=== PATIENT | female | born 1980 | race African-American/Black ===

== ENCOUNTER 2016-10-06 17:38 | Emergency (ER) | payer OTHER ==
[~2016-10-06] VITALS: Ht 165.1 cm; Wt 90.7 kg
[~2016-10-06 17:38] MED LIST: CLIN300C86 PO; SULF1TAB24 PO; TRAM-29 PO
[2016-10-06] MEDS ORDERED: IV NORMAL SALINE 1000ML BAG 1,000 ML IV SCH (21:08)
[2016-10-06 21:21] LABS: BASO % 1 % (0-3); EOS % 2 % (0-3); HEMATOCRIT 35.3 % (36.0-47.0); HEMOGLOBIN 11.4 g/dL (12.0-15.5); LYMPH % 38 % (24-48); MEAN CORPUSCULAR HEMOGLOBIN 30 pg (25-35); MEAN CORPUSCULAR HGB CONC 32 g/dL (31-37); MEAN CORPUSCULAR VOLUME 93 fL (79-100); MONO % 7 % (0-9); NEUT % 53 % (31-73); PLATELET COUNT 204 x10^3/uL (140-400); RED BLOOD COUNT 3.81 x10^6/uL (3.50-5.40); RED CELL DISTRIBUTION WIDTH 15.1 % (11.5-14.5); WHITE BLOOD COUNT 7.8 x10^3/uL (4.0-11.0)
[2016-10-06 21:22] LABS: BILIRUBIN,URINE NEGATIVE (NEG); GLUCOSE,URINE NEGATIVE (NEG); NITRITE,URINE NEGATIVE (NEG); PROTEIN,URINE NEGATIVE (NEG-TRACE); UROBILINOGEN,URINE 0.2 mg/dL (0.2 mg/dL)
[2016-10-06 21:28] LABS: BACTERIA,URINE 0 /HPF (0-FEW); RBC,URINE OCC /HPF (0-2); SQUAMOUS EPITHELIAL CELL,UR OCC /LPF; WBC,URINE OCC /HPF (0-4)
--- NOTE | 2016-10-06 21:29 | PHYS DOC ---
Past Medical History Past Medical History: GERD, Hypothyroid, Migraines Additional Past Medical Histor: Abscesses Past Surgical History: Cholecystectomy, Tubal ligation Alcohol Use: None Drug Use: None Adult General Chief Complaint Chief Complaint: VAGINAL BLEEDING HPI HPI Patient is a 36 year old female who presents with complaint of lower abdominal pain and vaginal bleeding. Patient states her vaginal bleeding has been present for the past 10 days. Patient states that her bleeding had been constant up until today. Patient states that her bleeding has slowed down currently from where it had been before. Patient states that she is having sharp pelvic pains as well. Patient rates her pain as 8 out of 10. Patient states that the pain is sharp. Patient denies pain with urination and denies any vaginal discharge. Patient states that her menstrual cycle is normally 3-4 days and she states that her cycles are regular. Review of Systems Review of Systems Constitutional: Denies fever or chills [] Eyes: Denies change in visual acuity, redness, or eye pain [] HENT: Denies nasal congestion or sore throat [] Respiratory: Denies cough or shortness of breath [] Cardiovascular: No additional information not addressed in HPI [] GI: Denies abdominal pain, nausea, vomiting, bloody stools or diarrhea [] : Vaginal bleeding, pelvic pain [] Musculoskeletal: Denies back pain or joint pain [] Integument: Denies rash or skin lesions [] Neurologic: Denies headache, focal weakness or sensory changes [] Current Medications Current Medications Current Medications Medications (Trade) Dose Ordered Sig/Tim Start Time Stop Time Status Last Admin Dose Admin Sodium Chloride (Iv Sodium Chloride 0.9% 1000ml Bag) 1,000 ml @ 1,000 mls/hr Q1H 10/06/16 21:08 10/06/16 22:07 DC 10/06/16 22:03 1,000 MLS/HR Allergies Allergies Allergies Coded Allergies Type Severity Reaction Last Updated Verified doxycycline Allergy Intermediate Itching 05/06/16 Yes Physical Exam Physical Exam Constitutional: Well developed, well nourished, no acute distress, non-toxic appearance. [] HENT: Normocephalic, atraumatic, bilateral external ears normal, oropharynx moist, no oral exudates, nose normal. [] Eyes: PERRLA, EOMI, conjunctiva normal, no discharge. [] Neck: Normal range of motion, no tenderness, supple, no stridor. [] Cardiovascular:Heart rate regular rhythm, no murmur [] Lungs & Thorax: Bilateral breath sounds clear to auscultation [] Abdomen: Bowel sounds normal, soft, no tenderness, no masses, no pulsatile masses. Pelvic: Normal external exam, mild amount of clotted blood present in vaginal canal, cervical os closed with minimal oozing of blood from os, no cervical motion tenderness, no midline or bilateral adnexal tenderness to palpation [] Skin: Warm, dry, no erythema, no rash. [] Back: No tenderness, no CVA tenderness. [] Extremities: No tenderness, no cyanosis, no clubbing, ROM intact, no edema. [] Neurologic: Alert and oriented X 3, normal motor function, normal sensory function, no focal deficits noted. [] Current Patient Data Vital Signs Vital Signs Date Time Temp Pulse Resp B/P Pulse Ox O2 Delivery O2 Flow Rate FiO2 10/06/16 20:29 98.1 110 18 123/88 98 Room Air 98.1 Lab Values Laboratory Tests Test 10/06/16 20:40 10/06/16 20:46 10/06/16 20:50 Urine Color Yellow Urine Clarity Clear Urine pH 7.0 Urine Specific [place] 1.025 Urine Protein Negativemg/dL (NEG-TRACE) Urine Glucose (UA) Negativemg/dL (NEG) Urine Ketones (Stick) Negativemg/dL (NEG) Urine Blood Small (NEG) Urine Nitrite Negative (NEG) Urine Bilirubin Negative (NEG) Urine Urobilinogen Dipstick 0.2mg/dL (0.2 mg/dL) Urine Leukocyte Esterase Negative (NEG) Urine RBC Occ/HPF (0-2) Urine WBC Occ/HPF (0-4) Urine Squamous Epithelial Cells Occ/LPF Urine Bacteria 0/HPF (0-FEW) Urine Mucus Mod/LPF POC Urine HCG, Qualitative Hcg negative (Negative) White Blood Count 7.8x10^3/uL (4.0-11.0) Red Blood Count 3.81x10^6/uL (3.50-5.40) Hemoglobin 11.4g/dL (12.0-15.5) L Hematocrit 35.3% (36.0-47.0) L Mean Corpuscular Volume 93fL (79-100) Mean Corpuscular Hemoglobin 30pg (25-35) Mean Corpuscular Hemoglobin Concent 32g/dL (31-37) Red Cell Distribution Width 15.1% (11.5-14.5) H Platelet Count 204x10^3/uL (140-400) Neutrophils (%) (Auto) 53% (31-73) Lymphocytes (%) (Auto) 38% (24-48) Monocytes (%) (Auto) 7% (0-9) Eosinophils (%) (Auto) 2% (0-3) Basophils (%) (Auto) 1% (0-3) Neutrophils # (Auto) 4.1x10^3uL (1.8-7.7) Lymphocytes # (Auto) 3.0x10^3/uL (1.0-4.8) Monocytes # (Auto) 0.5x10^3/uL (0.0-1.1) Eosinophils # (Auto) 0.2x10^3/uL (0.0-0.7) Basophils # (Auto) 0.0x10^3/uL (0.0-0.2) Prothrombin Time 12.9SEC (11.7-14.0) Prothrombin Time INR 1.0 (0.8-1.1) PTT 26SEC (24-38) Sodium Level 141mmol/L (136-145) Potassium Level 3.7mmol/L (3.5-5.1) Chloride Level 104mmol/L (98-107) Carbon Dioxide Level 26mmol/L (21-32) Anion Gap 11 (6-14) Blood Urea Nitrogen 14mg/dL (7-20) Creatinine 0.9mg/dL (0.6-1.0) Estimated GFR (Cockcroft-Gault) 84.8 Glucose Level 138mg/dL (70-99) H Calcium Level 9.0mg/dL (8.5-10.1) Magnesium Level 1.8mg/dL (1.8-2.4) Laboratory Tests 10/06/16 20:50 Laboratory Tests 10/06/16 20:50 Microbiology 10/06/16 Wet Prep - Final, Complete EKG EKG Not performed [] Radiology/Procedures Radiology/Procedures Not performed [] Course & Med Decision Making Course & Med Decision Making Pertinent Labs and Imaging studies reviewed. (See chart for details) Patient was found to have clue cells on her wet prep. The patient will be started on Flagyl treatment as outpatient. The patient did mention during pelvic exam that she was told approximate 7 years ago that she had uterine fibroids at that time. This may be contributing to the patient's abnormal bleeding. The patient's workup otherwise is unremarkable. The patient is appropriate for continued outpatient workup and treatment. The patient was referred to Dr. Fuller of [facility] for follow-up in 5-7 days. The patient's nonfasting blood sugar was found to be 138. I recommended that the patient have this rechecked with at least 6-8 hours of fasting before having her blood sugar checked. I recommended return to the emergency department for any worsening symptoms. Patient voiced understanding and in agreement with treatment plan. Dragon Disclaimer Dragon Disclaimer This electronic medical record was generated, in whole or in part, using a voice recognition dictation system. Departure Departure Impression: Primary Impression: Menorrhagia Additional Impressions: Bacterial vaginosis Hyperglycemia Disposition: HOME, SELF-CARE Condition: IMPROVED Referrals: NO PCP (PCP) MELANI NUNEZ MD Patient Instructions: Bacterial Vaginosis, Hyperglycemia, Menorrhagia Additional Instructions: Be sure to complete the entire antibiotic prescription for treatment of bacterial vaginosis. Follow-up with [facility] in 5-7 days. Be sure to have your blood sugar rechecked with at least 6-8 hours of fasting before it is checked. Return to the emergency department for any worsening symptoms. Scripts Metronidazole (Flagyl)500 Mg Tablet1 Tab PO BID #14 TAB Prov:ANOOP ACEVEDO MD 10/06/16 Problem Qualifiers Primary Impression: Menorrhagia Menorrahagia type: with regular cycle Qualified Code: N92.0 - Excessive and frequent menstruation with regular cycle ANOOP ACEVEDO MD Oct 06, 2016 21:29
[2016-10-06 21:31] LABS: PROTHROMBIN TIME PATIENT 12.9 SEC (11.7-14.0)
[2016-10-06 21:32] LABS: CREATININE 0.9 mg/dL (0.6-1.0); GFR 84.8; MAGNESIUM 1.8 mg/dL (1.8-2.4); POTASSIUM 3.7 mmol/L (3.5-5.1)
[2016-10-06] MEDS ORDERED: METR500T PO (22:12)
[2016-10-06 22:51] VITALS: BP 150/82
== END 2016-10-06 22:55 | disposition home or self-care (01) ==
LOC: ER 17:38
DX: N92.0 Excessive and frequent menstruation with regular cycle (principal); N76.0 Acute vaginitis; R73.9 Hyperglycemia, unspecified; K21.9 Gastro-esophageal reflux disease without esophagitis; E03.9 Hypothyroidism, unspecified; G43.909 Migraine, unspecified, not intractable, without status migrainosus; Z90.49 Acquired absence of other specified parts of digestive tract; Z98.51 Tubal ligation status; Z88.1 Allergy status to other antibiotic agents
CPT/HCPCS: 36415; 80048; 81001; 81025; 83735; 85027; 85610; 85730; 87491; 87591; 96360; 99284; J7030; Q0111

== ENCOUNTER 2016-11-23 20:09 | Emergency (ER) | payer OTHER ==
[~2016-11-23 20:09] MED LIST changes: +METR500T PO
[2016-11-23 20:11] VITALS: BP 118/89
[2016-11-23] MEDS ORDERED: SULF1TAB24 PO (20:38)
--- NOTE | 2016-11-23 20:38 | PHYS DOC ---
Past Medical History Past Medical History: No Pertinent History Additional Past Medical Histor: Abscesses Past Surgical History: Cholecystectomy Alcohol Use: None Drug Use: None Adult General Chief Complaint Chief Complaint: SKIN PROBLEM HPI HPI Patient is a 36 year old female presents emergency department stating that she has multiple abscesses. Patient states that she's had these for the last 2 days. She states that she has multiple abscesses underneath her left axillary her hard and tender to touch. Abscess in the left inguinal area that appears to have drainage at this time. In one abscess on the right buttocks that is very soft and tender to touch. Patient states that she has had abscesses in the past. She states that she has had lanced open as well. Patient states that she has been having some nauseous feeling although denies fever, chills. Review of Systems Review of Systems Constitutional: Denies fever or chills [] Eyes: Denies change in visual acuity, redness, or eye pain [] HENT: Denies nasal congestion or sore throat [] Respiratory: Denies cough or shortness of breath [] Cardiovascular: No additional information not addressed in HPI [] GI: Denies abdominal pain, nausea, vomiting, bloody stools or diarrhea [] : Denies dysuria or hematuria [] Musculoskeletal: Denies back pain or joint pain [] Integument: Denies rash or skin lesions. C/o multiple abscesses Neurologic: Denies headache, focal weakness or sensory changes [] Current Medications Current Medications Current Medications Medications (Trade) Dose Ordered Sig/Tim Start Time Stop Time Status Last Admin Dose Admin Acetaminophen/ Hydrocodone Bitart (Lortab 5/325) 1 tab 1X ONCE 11/23/16 21:00 11/23/16 21:01 DC 11/23/16 20:48 1 TAB Lidocaine/Sodium Bicarbonate (Buffered Lidocaine 1%) 20 ml 1X ONCE 11/23/16 21:00 11/23/16 21:01 DC 11/23/16 20:48 20 ML Allergies Allergies Allergies Coded Allergies Type Severity Reaction Last Updated Verified doxycycline Allergy Intermediate Itching 05/06/16 Yes Physical Exam Physical Exam Constitutional: Well developed, well nourished, no acute distress, non-toxic appearance. [] HENT: Normocephalic, atraumatic, bilateral external ears normal, oropharynx moist, no oral exudates, nose normal. [] Eyes: PERRLA, EOMI, conjunctiva normal, no discharge. [] Neck: Normal range of motion, no tenderness, supple, no stridor. [] Cardiovascular:Heart rate regular rhythm, no murmur [] Lungs & Thorax: Bilateral breath sounds clear to auscultation [] Skin: Warm, dry, no erythema, no rash. Multiple abscesses noted under the left axillary that appear to be very hard with no fluctuation noted. Tenderness was noted. Patient with abscess noted in the left inguinal area that appears to be very tender with fluctuation noted with drainage noted. Patient with abscess on the right buttocks that appears to be very tender. Soft with fluctuant noted no drainage noted. Back: No tenderness Extremities: No tenderness, no cyanosis, no clubbing, ROM intact, no edema. [] Neurologic: Alert and oriented X 3, normal motor function, normal sensory function, no focal deficits noted. [] Psychologic: Affect normal, judgement normal, mood normal. [] Current Patient Data Vital Signs Vital Signs Date Time Temp Pulse Resp B/P Pulse Ox O2 Delivery O2 Flow Rate FiO2 11/23/16 20:48 14 95 Room Air 11/23/16 20:11 97.9 110 97.9 EKG EKG [] Radiology/Procedures Radiology/Procedures [] Course & Med Decision Making Course & Med Decision Making Pertinent Labs and Imaging studies reviewed. (See chart for details) Patient was provided with hydrocodone for pain and discomfort. Went in to speak with patient in regards to the I&D in which she has told staff she does not want done. Upon entering patient's room she has eloped from the department. Patient will be considered against leaving AGAINST MEDICAL ADVICE. It was not provided with any type of antibiotics to help with the infections. [] Dragon Disclaimer Dragon Disclaimer This electronic medical record was generated, in whole or in part, using a voice recognition dictation system. Departure Departure Impression: Primary Impression: Left against medical advice Additional Impression: Abscess Disposition: 01 HOME, SELF-CARE Condition: STABLE Referrals: NO PCP (PCP) JAYDON ISRAEL MD Patient Instructions: Abscess, [id number], Incision and Drainage, Care After Problem Qualifiers GEORGIANA OROURKE APRN Nov 23, 2016 20:38
[2016-11-23] MEDS ORDERED: LIDOCAINE 1% / SOD BICARB 8.4% 20 ML VIAL. IJ ONE (21:00)
[2016-11-23] MEDS ORDERED: HYDROCODONE/APAP 5/325MG TABLET. PO ONE (21:00)
== END 2016-11-23 21:10 | disposition home or self-care (01) ==
LOC: ER 20:09
DX: L02.412 Cutaneous abscess of left axilla (principal); L02.31 Cutaneous abscess of buttock; L02.214 Cutaneous abscess of groin; R11.0 Nausea; Z88.1 Allergy status to other antibiotic agents
CPT/HCPCS: 99283

== ENCOUNTER 2017-01-22 21:20 | Emergency (ER) | payer OTHER ==
[~2017-01-22] VITALS: Ht 165.1 cm; Wt 94.8 kg
[~2017-01-22 21:20] MED LIST changes: +CLIN300C8 PO; -CLIN300C86 PO; -TRAM-29 PO; +TRAM-48 PO
[2017-01-22 21:26] VITALS: BP 118/76
[2017-01-22] MEDS ORDERED: IBUP200T77 PO (22:01)
--- NOTE | 2017-01-22 22:02 | PHYS DOC ---
Past Medical History Past Medical History: Depression, Migraines, Other Additional Past Medical Histor: Abscesses Past Surgical History: Cholecystectomy, Tubal ligation Alcohol Use: None Drug Use: None Adult General Chief Complaint Chief Complaint: FLU SYMPTOM HPI HPI 28-year-old female presenting with flulike symptoms. She reports having a cough runny nose muscle aches and headache. Her symptoms have been present for 3 days. She describes her headache is mild to moderate intermittent nonradiating worse with light. She denies chest pain abdominal pain nausea or vomiting. Review of systems is positive for cough rhinorrhea headache and muscle aches. All other review of systems is negative unless otherwise noted in history of present illness. Pertinent physical exam. The patient has clear lungs bilaterally. Soft nontender abdomen. No evidence of meningismus present. Negative Brudzinski sign. Negative Kernig sign. Nonfocal neuro exam. ED course: 36-year-old female presenting with flulike symptoms. Vital signs afebrile with mild tachycardia present. Saturating well on room air. I gave her ibuprofen for her headache and myalgias. She was in discharged home to follow up with her PCP in 2-3 days. She was to return if their symptoms worsened or if they were concerned for any reason. [id number] discharge instructions and return precautions were given. Patient's questions were answered to their satisfaction. Patient is comfortable plan. Review of Systems Review of Systems SEE ABOVE. Allergies Allergies Allergies Coded Allergies Type Severity Reaction Last Updated Verified doxycycline Allergy Intermediate Itching 05/06/16 Yes Physical Exam Physical Exam Constitutional: Well developed, well nourished, no acute distress, non-toxic appearance. HENT: Normocephalic, atraumatic, bilateral external ears normal, oropharynx moist, no oral exudates, nose normal. [] Eyes: PERRLA, EOMI, conjunctiva normal, no discharge. [] Neck: Normal range of motion, no tenderness, supple, no stridor. Cardiovascular: Heart rate regular rhythm, no murmur [] Lungs & Thorax: Bilateral breath sounds clear to auscultation [] Abdomen: Bowel sounds normal, soft, no tenderness, no masses, no pulsatile masses. [] Skin: Warm, dry, no erythema, no rash. Back: No tenderness, no CVA tenderness. [] Extremities: No tenderness, no cyanosis, no clubbing, ROM intact, no edema. [] Neurologic: Alert and oriented X 3, normal motor function, normal sensory function, no focal deficits noted. Psychologic: Affect normal, judgement normal, mood normal. Current Patient Data Vital Signs Vital Signs Date Time Temp Pulse Resp B/P (MAP) Pulse Ox O2 Delivery O2 Flow Rate FiO2 01/22/17 21:26 98.1 97 20 98 Room Air 98.1 EKG EKG [] Radiology/Procedures Radiology/Procedures [] Course & Med Decision Making Course & Med Decision Making Pertinent Labs and Imaging studies reviewed. (See chart for details) [] Dragon Disclaimer Dragon Disclaimer This electronic medical record was generated, in whole or in part, using a voice recognition dictation system. Departure Departure Impression: Primary Impression: Flu-like symptoms Additional Impression: Viral URI Disposition: HOME, SELF-CARE Condition: STABLE Referrals: NO PCP (PCP) NANCY GARNICA MD Patient Instructions: Cough, Adult, Muscle Cramps, [id number] Additional Instructions: Thank you for allowing us to participate in your care today. Followup with your primary care physician in 3 days if your symptoms do not improve. If you do not have a primary care provider you can ask for a list of our primary care providers. Return to the emergency department you have any new or concerning findings. This should be evaluated by the primary care physician and any necessary consulting services for continued management within a few days after discharge. Return to emergency room if you have any new or concerning symptoms including but not limited to fever, chills, nausea, vomiting, intractable pain, any new rashes, chest pain, shortness of air, uncontrolled bleeding, difficulty breathing, and/or vision loss. Scripts Ibuprofen (IBUPROFEN) 200 Mg Tablet 400 MG PO PRN Q8HRS Y for PAIN, #20 TAB Prov: SARAH SMITH MD 01/22/17 Problem Qualifiers SARAH SMITH MD Jan 22, 2017 22:02
[2017-01-22] MEDS ORDERED: IBUPROFEN 400 MG TABLET. PO ONE (22:30)
== END 2017-01-22 22:19 | disposition home or self-care (01) ==
LOC: ER 21:20
DX: J06.9 Acute upper respiratory infection, unspecified (principal)
CPT/HCPCS: 99282

== ENCOUNTER 2017-04-15 17:57 | Emergency (ER) | payer OTHER ==
[~2017-04-15] VITALS: Ht 165.1 cm; Wt 97.5 kg
[~2017-04-15 17:57] MED LIST changes: +IBUP200T77 PO
--- NOTE | 2017-04-15 18:09 | PHYS DOC ---
Past Medical History Past Medical History: Depression, Migraines, Other Additional Past Medical Histor: Abscesses Past Surgical History: Cholecystectomy, Tubal ligation Alcohol Use: None Drug Use: None Adult General Chief Complaint Chief Complaint: HEADACHE HPI HPI Patient is a 37 year old -[place] female who presents with her migraine. She states it started 3 days ago is throbbing in nature she also felt nauseated and vomited one to 2 times nonbloody nonbilious vomiting today. She denies any fevers chills or neck stiffness. She states this happens about every 3-6 months for is uncontrolled with Tylenol at home and she has to come into the hospital. She states the headache is throbbing in nature it's all of her entire head and this is exactly her migraine that she gets. She states that noise and light makes her headache worse. Review of Systems Review of Systems Constitutional: Denies fever or chills [] Eyes: Denies change in visual acuity, redness, or eye pain [] HENT: Denies nasal congestion or sore throat [] Respiratory: Denies cough or shortness of breath [] Cardiovascular: No additional information not addressed in HPI [] GI: Denies abdominal pain, nausea, vomiting, bloody stools or diarrhea [] : Denies dysuria or hematuria [] Musculoskeletal: Denies back pain or joint pain [] Integument: Denies rash or skin lesions [] Neurologic: Positive for headache, Denies focal weakness or sensory changes [] Endocrine: Denies polyuria or polydipsia [] Current Medications Current Medications Current Medications Medications (Trade) Dose Ordered Sig/Tim Start Time Stop Time Status Last Admin Dose Admin Diphenhydramine HCl (Benadryl) 25 mg 1X ONCE 04/15/17 18:30 04/15/17 18:31 DC 04/15/17 18:34 25 MG Promethazine HCl 25 mg/Sodium Chloride 51 ml @ 101 mls/hr 1X ONCE 04/15/17 18:30 04/15/17 19:00 DC 04/15/17 18:34 101 MLS/HR Sodium Chloride 1,000 ml @ 1,000 mls/hr 1X ONCE 04/15/17 18:30 04/15/17 19:29 DC 04/15/17 18:33 1,000 MLS/HR Allergies Allergies Allergies Coded Allergies Type Severity Reaction Last Updated Verified doxycycline Allergy Intermediate Itching 05/06/16 Yes Physical Exam Physical Exam Constitutional: Well developed, well nourished, no acute distress, non-toxic appearance. [] HENT: Normocephalic, atraumatic, bilateral external ears normal, oropharynx moist, no oral exudates, nose normal. [] Eyes: PERRLA, EOMI, conjunctiva normal, no discharge. [] Neck: Normal range of motion, no tenderness, supple, no stridor. [] Cardiovascular:Heart rate regular rhythm, no murmur [] Lungs & Thorax: Bilateral breath sounds clear to auscultation [] Abdomen: Bowel sounds normal, soft, no tenderness, no masses, no pulsatile masses. [] Skin: Warm, dry, no erythema, no rash. [] Back: No tenderness, no CVA tenderness. [] Extremities: No tenderness, no cyanosis, no clubbing, ROM intact, no edema. [] Neurologic: Alert and oriented X 3, normal motor function, normal sensory function, no focal deficits noted. [] Psychologic: Affect normal, judgement normal, mood normal. [] Current Patient Data Vital Signs Vital Signs Date Time Temp Pulse Resp B/P (MAP) Pulse Ox O2 Delivery O2 Flow Rate FiO2 04/15/17 19:20 82 16 131/83 (99) 98 Room Air 04/15/17 18:00 98.6 98.6 EKG EKG [] Radiology/Procedures Radiology/Procedures [] Impressions: Migraine headache Course & Med Decision Making Course & Med Decision Making Pertinent Labs and Imaging studies reviewed. (See chart for details) She presents with her typical migraine. She received Phenergan and Benadryl and a liter of fluids and was watched for approximately 90 minutes and feels better at this point in requesting we discharged home. Return precautions given. She is agreeable plan being discharged in stable condition at this time. Dragon Disclaimer Dragon Disclaimer This electronic medical record was generated, in whole or in part, using a voice recognition dictation system. Departure Departure Impression: Primary Impression: Migraine Referrals: NO PCP (PCP) Patient Instructions: Migraine Headache, [id number] Additional Instructions: You were seen today for your migraine headache. You received Benadryl and Phenergan and your headache has improved. Please go home and rest tonight and drink plenty of fluids. If you develop neck stiffness, fevers or worsening headache or other concerns please return back to emergency department. He should follow up with her primary care physician within the next few days. 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
[2017-04-15] MEDS ORDERED: IV NORMAL SALINE 1000ML BAG 1,000 ML IV ONE (18:30)
[2017-04-15] MEDS ORDERED: diphenhydrAMINE 50 MG/ML VIAL IVP ONE (18:30)
[2017-04-15] MEDS ORDERED: PROMETHAZINE 25 MG in IV NORMAL SALINE 50ML 50 ML IV ONE (18:30)
[2017-04-15 19:20] VITALS: BP 131/83
[2017-04-15 20:03] LABS: BARBITURATES NEG (NEG); BENZODIAZEPINES NEG (NEG); CANNABINOIDS POS (NEG); COCAINE NEG (NEG); METHADONE NEG (NEG); OPIATES NEG (NEG); PHENCYCLIDINE POS (NEG)
== END 2017-04-15 19:36 | disposition home or self-care (01) ==
LOC: ER 17:57
DX: G43.B0 Ophthalmoplegic migraine, not intractable (principal); F32.9 Major depressive disorder, single episode, unspecified; Z88.1 Allergy status to other antibiotic agents
CPT/HCPCS: 80307; 96365; 96375; 99284; J1200; J2550; J7030; G0479

== ENCOUNTER 2017-07-24 06:14 | Emergency (ER) | payer OTHER ==
[~2017-07-24] VITALS: Ht 165.1 cm; Wt 97.5 kg
[2017-07-24 06:24] VITALS: BP 122/88
[2017-07-24] MEDS ORDERED: LIDOCAINE 1%/EPI 1:100,000 20 ML VIAL. INJ ONE (07:00)
[2017-07-24] MEDS ORDERED: DIPHTH,PERTUSS(ACELL),TET TOX 0.5 ML DISP.SYRIN. VAX IM ONE (07:00)
--- NOTE | 2017-07-24 07:02 | PHYS DOC ---
Past Medical History Past Medical History: Depression, Migraines, Other Additional Past Medical Histor: Abscesses Past Surgical History: Cholecystectomy, Tubal ligation Alcohol Use: None Drug Use: None Adult General Chief Complaint Chief Complaint: ABSCESS HPI HPI Patient is a 37 year old female who presents with right thumb paronychia after she pulled off a large cuticle. Patient is regretful that she did this and states she will never do it again, she's never had this before. She is unsure of her last tetanus immunization. Review of Systems Review of Systems Constitutional: Denies fever or chills [] Eyes: Denies eye pain [] HENT: Denies nasal congestion or sore throat [] Respiratory: Denies cough or shortness of breath [] Cardiovascular: Denies chest pain GI: Denies abdominal pain, nausea, vomiting, or change in stools : Denies dysuria or hematuria [] Musculoskeletal: Denies back pain Integument: Denies rash Neurologic: Denies headache, focal weakness or sensory changes [] Current Medications Current Medications Current Medications Medications (Trade) Dose Ordered Sig/Tim Start Time Stop Time Status Last Admin Dose Admin Diphtheria/ Tetanus/Acell Pertussis (Boostrix) 0.5 ml ONCE ONCE 07/24/17 07:00 07/24/17 07:00 DC 07/24/17 06:34 0.5 ML Lidocaine/ Epinephrine (Xylocaine 1%-Epi 1:100,000) 20 ml 1X ONCE 07/24/17 07:00 07/24/17 07:00 DC 07/24/17 06:38 20 ML Allergies Allergies Allergies Coded Allergies Type Severity Reaction Last Updated Verified doxycycline Allergy Intermediate Itching 05/06/16 Yes Physical Exam Physical Exam Constitutional: Well developed, well nourished, no acute distress, non-toxic appearance. HENT: Normocephalic, atraumatic Eyes: conjunctiva normal, no discharge. Neck:supple Cardiovascular:Heart rate regular with regular rhythm Lungs & Thorax: No respiratory distress Skin: Warm, dry Extremities: Right thumb with a paronychia, tender to palpation, no tenderness on the palmar aspect of the thumb, full range of motion in the skin intact, no active drainage Neurologic: Alert and oriented X 3, normal sensory function, no focal deficits noted. Psychologic: mood normal. Current Patient Data Vital Signs Vital Signs Date Time Temp Pulse Resp B/P (MAP) Pulse Ox O2 Delivery O2 Flow Rate FiO2 07/24/17 06:24 98.1 90 18 97 Room Air 98.1 EKG EKG [] Radiology/Procedures Radiology/Procedures Indication: abscess Procedure: The patient was positioned appropriately. Local anesthesia was 1% lidocaine with epi. An incision was then made over the apex of the lesion and small amount of pus material was expressed. The patients tetanus status updated as needed. The patient tolerated the procedure well. Complications: none.[] Course & Med Decision Making Course & Med Decision Making Pertinent Labs and Imaging studies reviewed. (See chart for details) i&D performed, no need for abx. Counseled on home treatment. tdap given. Dragon Disclaimer Dragon Disclaimer This electronic medical record was generated, in whole or in part, using a voice recognition dictation system. Departure Departure Impression: Primary Impression: Paronychia Disposition: 01 HOME, SELF-CARE Condition: IMPROVED Patient Instructions: Form - Excuse from Work, School, or Physical Activity, Paronychia, [id number] JULIET ADAME MD Jul 24, 2017 07:02
== END 2017-07-24 06:51 | disposition home or self-care (01) ==
LOC: ER 06:14
DX: L03.011 Cellulitis of right finger (principal); G43.909 Migraine, unspecified, not intractable, without status migrainosus; Z88.1 Allergy status to other antibiotic agents
CPT/HCPCS: 10060; 90471; 90715; 99283; J3490

== ENCOUNTER 2017-12-06 15:50 | Emergency (ER) | payer OTHER | END 2017-12-06 16:51 | disposition home or self-care (01) | LOC: ER 15:50 | DX: L02.416 Cutaneous abscess of left lower limb (principal); G43.909 Migraine, unspecified, not intractable, without status migrainosus; Z88.1 Allergy status to other antibiotic agents | CPT/HCPCS: 99283 ==

== ENCOUNTER 2017-12-25 21:33 | Emergency (ER) | payer OTHER | END 2017-12-25 22:07 | disposition left against medical advice (07) | LOC: ER 21:33 | DX: R68.89 Other general symptoms and signs (principal); Z53.21 Procedure and treatment not carried out due to patient leaving prior to being seen by health care provider ==

== ENCOUNTER 2018-02-05 10:43 | Emergency (ER) | payer OTHER ==
[2018-02-05] MEDS: ALPRAZolam 0.5 MG TABLET PO (11:42)
[2018-02-05] MEDS: ONDANSETRON ODT 4 MG TAB.RAPDIS. PO (11:42)
[2018-02-05] MEDS: KETOROLAC 60 MG/2 ML INJ. IM (11:42)
== END 2018-02-05 12:31 | disposition left against medical advice (07) ==
LOC: ER 10:43
DX: G43.909 Migraine, unspecified, not intractable, without status migrainosus (principal); F41.9 Anxiety disorder, unspecified; L02.818 Cutaneous abscess of other sites; B95.8 Unspecified staphylococcus as the cause of diseases classified elsewhere; F31.9 Bipolar disorder, unspecified; Z91.19 Patient's noncompliance with other medical treatment and regimen; Z90.49 Acquired absence of other specified parts of digestive tract; Z98.51 Tubal ligation status; Z88.1 Allergy status to other antibiotic agents
CPT/HCPCS: 96372; 99283; J1885; Q0162

== ENCOUNTER 2019-11-19 14:53 | Emergency (ER) | payer SELFPAY ==
[~2019-11-19] VITALS: Ht 165.1 cm; Wt 102.3 kg
[~2019-11-19 14:53] MED LIST changes: +TRAM50TA PO
[2019-11-19 15:10] VITALS: BP 153/97
--- NOTE | 2019-11-19 15:28 | PHYS DOC ---
Past Medical History Past Medical History: Anxiety, Bipolar, Depression, Migraines, Other Additional Past Medical Histor: Abscesses Past Surgical History: Cholecystectomy, Tubal ligation Smoking Status: Current Every Day Smoker Alcohol Use: None Drug Use: None Adult General Chief Complaint Chief Complaint: ANXIETY/PANIC ATTACK [facility] HPI Patient is a 39 year old female with history of anxiety, bipolar, depression, migraine headaches, who presents to the ED today complaining of an anxiety attack that began after she had a verbal altercation with the female partner. Patient states she used to be on Valium for anxiety but has not taken it for a while. Patient denies any suicidal or homicidal ideations. Review of Systems Review of Systems Constitutional: Denies fever or chills [] Eyes: Denies change in visual acuity, redness, or eye pain [] HENT: Denies nasal congestion or sore throat [] Respiratory: Denies cough or shortness of breath [] Cardiovascular: No additional information not addressed in HPI [] GI: Denies abdominal pain, nausea, vomiting, bloody stools or diarrhea [] : Denies dysuria or hematuria [] Musculoskeletal: Denies back pain or joint pain [] Integument: Denies rash or skin lesions [] Neurologic: Denies headache, focal weakness or sensory changes [] Psych: Reports anxiety attack All other systems were reviewed and found to be within normal limits, except as documented in this note. Allergies Allergies Allergies Coded Allergies Type Severity Reaction Last Updated Verified doxycycline Allergy Intermediate Itching 05/06/16 Yes Physical Exam Physical Exam Constitutional: Well developed, well nourished, no acute distress, non-toxic appearance. [] HENT: Normocephalic, atraumatic, bilateral external ears normal, oropharynx moist, no oral exudates, nose normal. [] Eyes: PERRLA, EOMI, conjunctiva normal, no discharge. [] Neck: Normal range of motion, no tenderness, supple, no stridor. [] Cardiovascular:Heart rate regular rhythm, no murmur [] Lungs & Thorax: Bilateral breath sounds clear to auscultation [] Abdomen: Bowel sounds normal, soft, no tenderness, no masses, no pulsatile masses. [] Skin: Warm, dry, no erythema, no rash. [] Back: No tenderness, no CVA tenderness. [] Extremities: No tenderness, no cyanosis, no clubbing, ROM intact, no edema. [] Neurologic: Alert and oriented X 3, normal motor function, normal sensory fu nction, no focal deficits noted. [] Psychologic: Affect normal, judgement normal, mood normal. [] EKG EKG [] Radiology/Procedures Radiology/Procedures [] Course & Med Decision Making Course & Med Decision Making Pertinent Labs and Imaging studies reviewed. (See chart for details) This is a 39-year-old female patient presenting to the ED today with an anxiety attack. Patient was instructed to follow-up with [facility]. She does not have any suicidal or homicidal ideations. Dragon Disclaimer Dragon Disclaimer This electronic medical record was generated, in whole or in part, using a voice recognition dictation system. Departure Departure Impression: Primary Impression: Anxiety attack Disposition: HOME, SELF-CARE Condition: STABLE Referrals: NO PCP (PCP) HELLEN RICARDO APRN Nov 19, 2019 15:28
== END 2019-11-19 15:20 | disposition home or self-care (01) ==
LOC: ER 14:53
DX: F41.0 Panic disorder [episodic paroxysmal anxiety] (principal); F17.200 Nicotine dependence, unspecified, uncomplicated; G43.909 Migraine, unspecified, not intractable, without status migrainosus; F32.9 Major depressive disorder, single episode, unspecified; Z90.49 Acquired absence of other specified parts of digestive tract
CPT/HCPCS: 99283-25